=== PATIENT | male | born 1940 | race Caucasian/White ===

== ENCOUNTER → 2016-10-04 | Outpatient (CLI) | payer MEDICARE ==
--- NOTE | 2016-10-06 08:53 | RSPPFT ---
DATE OF PROCEDURE: 10/04/16 COMMENTS: Spirometry with FVC of 2.2, FEV1 of 1.6, FEV1/FVC ratio at 75%. A positive and significant response to acutely inhaled bronchodilator. Slow vital capacity is 54% of predicted. TLC is 76%. Diffusion capacity is reduced however normal when corrected for alveolar volume. Flow volume loop suggests airways obstruction. IMPRESSION: 1. Moderately severe obstructive airways disease. 2. Positive and significant response to inhaled bronchodilator. 3. No evidence of airways restriction. 4. Mild reduction in diffusion capacity and normal when corrected for alveolar volume.
== END ==
LOC: HRSP 12:25
PROVIDERS: ATTEND Family Medicine
DX: J45.909 Unspecified asthma, uncomplicated (principal)
CPT/HCPCS: 94060; 94726; 94729